=== PATIENT | female | born 1955 | race Caucasian/White ===

== ENCOUNTER 2018-10-16 12:50 | Observation (INO) | payer MEDICARE, OTHER ==
--- NOTE | 2018-10-16 13:44 | ER Document Report ---
ED Medical Screen (RME) - General Chief Complaint: Chest Pain Stated Complaint: CHEST PAIN, SHORT OF BREATH Time Seen by Provider: 10/16/18 13:36 Notes: Patient is a 63-year-old female that presents to the emergency department for chief complaint of chest pain. Patient states it started last night, seems to be worse with exertion, has associated shortness of breath. ROS: Other than noted above, the 12 point review of systems was reviewed with the patient and were negative, all pertinent findings are included in the HPI. PHYSICAL EXAMINATION: Vital signs reviewed. GENERAL: Elderly female, no acute distress HEAD: Atraumatic, normocephalic. EYES: Pupils equal round extraocular movements intact, conjunctiva are normal. ENT: Nares patent NECK: Normal range of motion CV: Heart regular rate and rhythm LUNGS: No respiratory distress Musculoskeletal: Normal range of motion NEUROLOGICAL: Normal speech PSYCH: Normal mood, normal affect. MDM: Patient seen and examined for rapid initial assessment. Vital signs reviewed. A comprehensive ED assessment and evaluation of the patient, analysis of test results and completion of the medical decision making process will be conducted by additional ED providers. *Note is created using voice recognition software and may contain spelling, syntax or grammatical errors. TRAVEL OUTSIDE OF THE [place] IN LAST 30 DAYS: No - Related Data Allergies/Adverse Reactions: No Known Allergies Allergy (Verified 10/16/18 13:43) Past Medical History - Social History Chew tobacco use (# tins/day): No Frequency of alcohol use: None Drug Abuse: None - Past Medical History Cardiac Medical History: Reports: Hx Hypercholesterolemia, Hx Hypertension Renal/ Medical History: Denies: Hx Peritoneal Dialysis GI Medical History: Reports: Hx Gastroesophageal Reflux Disease Past Surgical History: Reports: Hx Appendectomy, Hx Cholecystectomy, Hx Hysterectomy, Hx Orthopedic Surgery - right knee replaced, back surgery Physical Exam - Vital signs Vitals: Temp Pulse Resp BP Pulse Ox 98.1 F 71 18 147/76 H 99 10/16/18 13:01 10/16/18 13:01 10/16/18 13:01 10/16/18 13:01 10/16/18 13:01 Course - Vital Signs Vital signs: Temp Pulse Resp BP Pulse Ox 98.1 F 71 18 147/76 H 99 10/16/18 13:01 10/16/18 13:01 10/16/18 13:01 10/16/18 13:01 10/16/18 13:01
--- NOTE | 2018-10-16 14:15 | RADIOLOGY REPORT (SQ) ---
EXAM DESCRIPTION: CHEST SINGLE VIEW COMPLETED DATE/TIME: 10/16/2018 2:07 pm REASON FOR STUDY: chest pain COMPARISON: None. EXAM PARAMETERS: NUMBER OF VIEWS: One view. TECHNIQUE: Single frontal radiographic view of the chest acquired. RADIATION DOSE: NA LIMITATIONS: None. FINDINGS: LUNGS AND PLEURA: No opacities, masses or pneumothorax. No pleural effusion. MEDIASTINUM AND HILAR STRUCTURES: No masses. Contour normal. HEART AND VASCULAR STRUCTURES: Heart normal in size. Normal vasculature. BONES: No acute findings. HARDWARE: None in the chest. OTHER: No other significant finding. IMPRESSION: NO ACUTE RADIOGRAPHIC FINDING IN THE CHEST. TECHNICAL DOCUMENTATION: JOB ID: [id number] [employer]- All Rights Reserved Reading location - IP/workstation name: [email or web address]
[2018-10-16 14:31] LABS: ABSOLUTE BASOPHILS # (AUTO) 0.1 10^3/uL (0.0-0.2); ABSOLUTE EOSINOPHILS # (AUTO) 0.1 10^3/uL (0.0-0.6); ABSOLUTE LYMPHOCYTES (AUTO) 3.9 10^3/uL (0.5-4.7); ABSOLUTE MONOCYTES (AUTO) 0.5 10^3/uL (0.1-1.4); ABSOLUTE NEUT (AUTO) 3.6 10^3/uL (1.7-8.2); EOSINOPHILS % (AUTO) 1.2 % (0-6); HEMATOCRIT 42.8 % (36.0-47.0); HEMOGLOBIN 14.6 g/dL (12.0-15.5); LYMPHOCYTES % (AUTO) 47.7 % (13-45); MEAN CORPUSCULAR HEMOGLOBIN 31.4 pg (27.0-33.4); MEAN CORPUSCULAR HGB CONC 34.1 g/dL (32.0-36.0); MEAN CORPUSCULAR VOLUME 92 fl (80-97); MONOCYTES % (AUTO) 5.9 % (3-13); PLATELET COUNT 298 10^3/uL (150-450); RED BLOOD COUNT 4.64 10^6/uL (3.72-5.28); RED CELL DISTRIBUTION WIDTH 13.3 % (11.5-14.0); SEGMENTED NEUTROPHILS % (AUTO) 44.2 % (42-78); TOTAL CELLS COUNTED % (AUTO) 100 %; WHITE BLOOD COUNT 8.2 10^3/uL (4.0-10.5)
[2018-10-16] MEDS ORDERED: ASPIRIN 81 MG TABLET, CHEWABLE PO ONE (14:47)
[2018-10-16 14:55] LABS: ALANINE AMINOTRANSFERASE 30 U/L (9-52); ALBUMIN 4.1 g/dL (3.5-5.0); ALKALINE PHOSPHATASE 90 U/L (38-126); ANION GAP 11 (5-19); ASPARTATE AMINO TRANSFERASE 34 U/L (14-36); BILIRUBIN,DIRECT 0.4 mg/dL (0.0-0.4); BILIRUBIN,TOTAL 0.6 mg/dL (0.2-1.3); BLOOD UREA NITROGEN 8 mg/dL (7-20); CARBON DIOXIDE 30 mmol/L (22-30); CHLORIDE 98 mmol/L (98-107); GLUCOSE 96 mg/dL (75-110); POTASSIUM 3.9 mmol/L (3.6-5.0); SODIUM 138.7 mmol/L (137-145); TOTAL PROTEIN 6.6 g/dL (6.3-8.2)
[2018-10-16] MEDS: NITROGLYCERIN 0.4 MG/TAB 25 TAB/BOTTLE SL PRN ×2 (14:58→15:15)
--- NOTE | 2018-10-16 15:04 | ER Document Report ---
ED General - General Chief Complaint: Chest Pain Stated Complaint: CHEST PAIN, SHORT OF BREATH Time Seen by Provider: 10/16/18 13:36 Primary Care Provider: EDUARD BARKSDALE MD [Primary Care Provider] - Follow up as needed TRAVEL OUTSIDE OF THE [place] IN LAST 30 DAYS: No - HPI Notes: Patient is a 63-year-old white female who presents to the emergency department for evaluation of chest pain. Onset was last night while lying in bed. She described it as a heavy pressure on her substernal area. She states it seems to have moved into her left lower chest and occasionally into her left arm. She also states she has had some shooting pains in her right posterior neck. She describes associated shortness of breath and nausea with this pain. She states she was able to get sleep eventually, awoke and the pain was improved but still present. Throughout the day, with any sort of exertion, the pain did worsen. She denies ever having any pain similar to this in the past. - Related Data Allergies/Adverse Reactions: No Known Allergies Allergy (Verified 10/16/18 13:43) Past Medical History - General Information source: Patient - Social History Smoking Status: Former Smoker Chew tobacco use (# tins/day): No Frequency of alcohol use: None Drug Abuse: None Family History: CAD - Nearly all siblings had coronary artery disease in their 40s and 50s Patient has suicidal ideation: No Patient has homicidal ideation: No - Past Medical History Cardiac Medical History: Reports: Hx Hypercholesterolemia, Hx Hypertension Renal/ Medical History: Denies: Hx Peritoneal Dialysis GI Medical History: Reports: Hx Gastroesophageal Reflux Disease Past Surgical History: Reports: Hx Appendectomy, Hx Cholecystectomy, Hx Hysterectomy, Hx Orthopedic Surgery - right knee replaced, back surgery Review of Systems - Review of Systems Constitutional: No symptoms reported EENT: No symptoms reported Cardiovascular: See HPI Respiratory: See HPI Gastrointestinal: No symptoms reported Genitourinary: No symptoms reported Musculoskeletal: No symptoms reported Skin: No symptoms reported Neurological/Psychological: No symptoms reported Physical Exam - Vital signs Vitals: Temp Pulse Resp BP Pulse Ox 98.1 F 71 18 147/76 H 99 10/16/18 13:01 10/16/18 13:01 10/16/18 13:01 10/16/18 13:01 10/16/18 13:01 - Notes Notes: Vital signs reviewed, please refer to chart. Patient is normocephalic, atraumatic. Pupils equal round, reactive to light. Neck is supple without meningismus. Heart is regular rate and rhythm. Lungs are clear to auscultation bilaterally. Abdomen is soft, nontender, normoactive bowel sounds throughout. Extremities without cyanosis, clubbing, edema. No posterior calf tenderness. Peripheral pulses are equal. Skin is warm and dry. Patient is awake, alert, ne urological exam is nonfocal. Course - Re-evaluation Re-evalutation: 10/16/18 15:02 Patient presents to the emergency department for evaluation. The onset of this pressure type pain at rest is not specifically suspicious, but I am concerned about the fact that it worsens with exertion. This patient is obese, has a history of hypertension, and a very strong family history. That combined with her age advances her HEART score significantly. Patient was placed on a environmental monitoring specialist, EKG and lab work were obtained. Orders initially carried out as by the physician in triage. Given this patient's multiple risk factors, I am inclined to treat her as an observation. Currently awaiting treatment with nitroglycerin to assess for response. We will continue to monitor. 10/16/18 16:38 I had been notified by nursing that the patient's pain did not significantly improve with nitroglycerin. She was medicated with morphine. Patient reexamined and found to be chest pain-free. Will apply Nitropaste. Will contact medicine for admission. 10/16/18 16:46 I spoke with RAFAL Moss and Dr. Roberts, patient will be admitted for further care. She remains stable here in the ED. - Vital Signs Vital signs: Temp Pulse Resp BP Pulse Ox 98.8 F 78 6 L 121/73 93 10/16/18 14:53 10/16/18 14:53 10/16/18 15:27 10/16/18 15:27 10/16/18 15:27 - Laboratory Result Diagrams: 10/16/18 14:19 10/16/18 14:19 Laboratory results interpreted by me: 10/16/18 14:19 Lymphocytes % 47.7 H - Diagnostic Test Radiology reviewed: Reports reviewed - No acute cardiopulmonary disease - EKG Interpretation by Me Additional EKG results interpreted by me: 10/16/18 15:04 Sinus mechanism with a rate of 70 bpm. Normal axis and intervals. Nonspecific ST and T wave changes, no changes concerning for acute infarction. No old studies available for comparison. Discharge - Discharge Clinical Impression: Chest pain Condition: Stable Disposition: ADMITTED OBSERVATION [facility] Admitted: Telemetry Referrals: EDUARD BARKSDALE MD [Primary Care Provider] - Follow up as needed
[2018-10-16] MEDS ORDERED: MORPHINE SULFATE 10 MG/ML INJ IV ONE (15:34)
[2018-10-16] MEDS ORDERED: ONDANSETRON HCL INJ/PF 4 MG/2 ML SDV IV ONE (15:34)
[2018-10-16] MEDS ORDERED: NITROGLYCERIN 2% OINTMENT 1 GM PACKET TP ONE (16:38)
[2018-10-16] MEDS ORDERED: NITROGLYCERIN 0.4 MG/TAB 25 TAB/BOTTLE SL PRN (17:25)
--- NOTE | 2018-10-16 17:41 | PDOC H&P ---
History of Present Illness Admission Date/PCP: 10/16/18 17:15 EDUARD BARKSDALE MD History of Present Illness: JOHN JUNIOR is a 63 year old female with a history of fibromyalgia, depression, anxiety, arthritis, and hypertension who presents with a 24-hour history of chest pain. She describes it as a pressure in the left side of her chest and does not radiate. She said she did feel something go up the back of her neck and the top of her head at one point but that is no longer there. She did some light housework yesterday but nothing strenuous. She is a non-smoker. The pain has been constant. It gets worse when she raises her left arm over her head. She is never had anything like this before. She said she had a negative stress test about 5 years ago. She has a strong family history, with 2 brothers dying of cardiac disease, and her sister had her first bypass surgery at age 45, a second at age 65. Past Medical History Cardiac Medical History: Reports: Hyperlipidema, Hypertension GI Medical History: Reports: Gastroesophageal Reflux Disease Past Surgical History Past Surgical History: Reports: Appendectomy, Cholecystectomy, Hysterectomy, Orthopedic Surgery - right knee replaced, back surgery Social History Smoking Status: Former Smoker Family History Family History: Arthritis, CAD - Nearly all siblings had coronary artery disease in their 40s and 50s, Hyperlipidemia, Hypertension Parental Family History Reviewed: Yes Children Family History Reviewed: Yes Sibling(s) Family History Reviewed.: Yes Medication/Allergy Allergies/Adverse Reactions: No Known Allergies Allergy (Verified 10/16/18 13:43) Review of Systems All systems: reviewed and no additional remarkable complaints except as stated - All systems reviewed and were negative except as noted in the HPI Physical Exam Vital Signs: Temp Pulse Resp BP Pulse Ox 98.8 F 78 6 L 121/73 93 10/16/18 14:53 10/16/18 14:53 10/16/18 15:27 10/16/18 15:27 10/16/18 15:27 Intake & Output 10/15/18 10/16/18 10/17/18 06:59 06:59 06:59 Weight 85.1 kg General appearance: PRESENT: no acute distress, cooperative, disheveled, morbidly obese Head exam: PRESENT: atraumatic, normocephalic Eye exam: PRESENT: EOMI, PERRLA. ABSENT: conjunctival injection, nystagmus, scleral icterus Ear exam: PRESENT: normal external ear exam Mouth exam: PRESENT: moist, neck supple Teeth exam: PRESENT: poor dentation Throat exam: ABSENT: post pharyngeal erythema Neck exam: PRESENT: full ROM. ABSENT: carotid bruit, JVD, lymphadenopathy, meningismus, tenderness, thyromegaly Respiratory exam: PRESENT: chest wall tenderness - Left lateral chest tenderness to palpation at the level of the mid sternum, over the area where she said her pain was the worst, clear to auscultation lisa, symmetrical, unlabored. ABSENT: accessory muscle use, crackles, prolonged expiratory phas, rhonchi, tachypnea, wheezes Cardiovascular exam: PRESENT: RRR, +S1, +S2. ABSENT: diastolic murmur, systolic murmur Pulses: PRESENT: normal carotid pulses Vascular exam: PRESENT: normal capillary refill GI/Abdominal exam: PRESENT: normal bowel sounds, soft. ABSENT: distended, guarding, rebound, tenderness Extremities exam: ABSENT: clubbing, pedal edema Musculoskeletal exam: PRESENT: normal inspection. ABSENT: deformity Neurological exam: PRESENT: alert, awake, oriented to person, oriented to place, oriented to time, oriented to situation, CN II-XII grossly intact. ABSENT: motor sensory deficit Psychiatric exam: PRESENT: anxious Skin exam: PRESENT: dry, warm Results Laboratory Results: 10/16/18 14:19 10/16/18 14:19 10/16/18 10/16/18 14:19 14:19 WBC 8.2 RBC 4.64 Hgb 14.6 Hct 42.8 MCV 92 MCH 31.4 MCHC 34.1 RDW 13.3 Plt Count 298 Seg Neutrophils % 44.2 Lymphocytes % 47.7 H Monocytes % 5.9 Eosinophils % 1.2 Basophils % 1.0 Absolute Neutrophils 3.6 Absolute Lymphocytes 3.9 Absolute Monocytes 0.5 Absolute Eosinophils 0.1 Absolute Basophils 0.1 Sodium 138.7 Potassium 3.9 Chloride 98 Carbon Dioxide 30 Anion Gap 11 BUN 8 Creatinine 0.62 Est GFR ( Amer) > 60 Est GFR (Non-Af Amer) > 60 Glucose 96 Calcium 10.0 Total Bilirubin 0.6 AST 34 ALT 30 Alkaline Phosphatase 90 Total Protein 6.6 Albumin 4.1 10/16/18 14:19 Troponin I < 0.012 Impressions: Chest X-Ray 10/16/18 13:44 IMPRESSION: NO ACUTE RADIOGRAPHIC FINDING IN THE CHEST. Assessment and Plan - Diagnosis (1) Chest pain Qualifiers: Chest pain type: other chest pain Qualified Code(s): R07.89 - Other chest pain; R07.8 - Other chest pain Is this a current diagnosis for this admission?: Yes Plan: The pain is atypical. It is not worse with exertion. It was reproducible to palpation. The ER doctor was going to put some nitroglycerin paste on her chest but her systolic was only around 100 and so I made the decision to hold off on doing that for now. The primary compelling reason to keep her here is because of her family history. This is an obese patient with a history of hypertension hyperlipidemia with a strong family history. We will trend her enzymes overnight and keep her on aspirin and statin. We will plan on getting a stress test tomorrow morning. - Time Time Spent with patient: 35 or more minutes
--- NOTE | 2018-10-16 21:25 | EKG REPORT ---
SEVERITY:- NORMAL ECG - SINUS RHYTHM : Confirmed by: Deann Manjarrez MD 16-Oct-2018 21:24:09
[2018-10-16] MEDS ORDERED: ATORVASTATIN CALCIUM 40 MG TABLET PO SCH (22:00)
[2018-10-17] MEDS ORDERED: ASPIRIN 81 MG TABLET, ENT COATED PO SCH (10:00)
[2018-10-17] MEDS ORDERED: REGADENOSON INJ 0.4 MG/5 ML DISP.SYRIN IV ONE (11:26)
--- NOTE | 2018-10-17 14:48 | EKG REPORT ---
SEVERITY:- ABNORMAL ECG - SINUS RHYTHM PROBABLE POSTERIOR INFARCT BORDERLINE T ABNORMALITIES, INFERIOR LEADS : Confirmed by: Deann Manjarrez MD 17-Oct-2018 14:47:45
--- NOTE | 2018-10-17 16:29 | PDOC DISCHARGE SUMMARY ---
General - Admit/Disc Date/PCP Admission Date/Primary Care Provider: 10/16/18 17:15 EDUARD BARKSDALE MD Discharge Date: 10/17/18 - Discharge Diagnosis (1) Chest pain Is this a current diagnosis for this admission?: Yes - Additional Information Resuscitation Status: Full Code Discharge Diet: Regular Discharge Activity: Activity As Tolerated Home Medications: Amitriptyline HCl [Elavil 100 mg Tablet] 100 mg PO QHS 10/16/18 Cholecalciferol (Vitamin D3) [Vitamin D3 2000 unit Tablet] 2,000 unit PO DAILY 10/16/18 Cyclobenzaprine HCl [Flexeril 10 mg Tablet] 10 mg PO TIDP PRN 10/16/18 Diazepam [Valium 2 mg Tablet] 2 mg PO Q12HP PRN 10/16/18 Duloxetine HCl [Cymbalta] 60 mg PO DAILY 10/16/18 Gabapentin [Neurontin 300 mg Capsule] 300 mg PO Q8 10/16/18 Metoclopramide HCl [Reglan 10 mg Tablet] 10 mg PO MEALS 10/16/18 Midodrine HCl 2.5 mg PO ASDIR PRN 10/16/18 Omeprazole 40 mg PO BID 10/16/18 Propranolol HCl [Inderal 40 mg Tablet] 40 mg PO BID 10/16/18 Rosuvastatin Calcium [Crestor 10 mg Tablet] 10 mg PO ASDIR PRN 10/16/18 Tramadol HCl [Ultram 50 mg Tablet] 50 mg PO ASDIR PRN 10/16/18 History of Present Illness Patient complains of: Chest pain and epigastric pain History of Present Illness: JOHN JUNIOR is a 63 year old female with a history of fibromyalgia, depression, anxiety, arthritis, and hypertension who presents with a 24-hour history of chest pain. She describes it as a pressure in the left side of her chest and does not radiate. She said she did feel something go up the back of her neck and the top of her head at one point but that is no longer there. She did some light housework yesterday but nothing strenuous. She is a non-smoker. The pain has been constant. It gets worse when she raises her left arm over her head. She is never had anything like this before. She said she had a negative stress test about 5 years ago. She has a strong family history, with 2 brothers dying of cardiac disease, and her sister had her first bypass surgery at age 45, a second at age 65. Patient was admitted to the hospitalist service on telemetry. She had serial troponins done x3 which were all unremarkable. She underwent Lexiscan stress testing which was interpreted by radiology cardiology. Dr. Manjarrez, to review this test is negative for ischemia. With normal LV function. We feel most likely the pain is gastrointestinal in nature. She was encouraged to follow-up with her primary care provider we discussed possible Carafate prior to meals and bedtime. States she does have a prescription for this at home but has not taken. She will try this and follow-up with her primary care provider in the next 1-2 weeks. She was discharged home in good condition with her granddaughter. Physical Exam Vital Signs: Temp Pulse Resp BP Pulse Ox 97.9 F 96 16 112/75 98 10/17/18 15:09 10/17/18 15:09 10/17/18 15:09 10/17/18 15:09 10/17/18 15:09 Intake & Output 10/16/18 10/17/18 10/18/18 06:59 06:59 06:59 Intake Total 900 522 Balance 900 522 Weight 79.9 kg General appearance: PRESENT: no acute distress, well-developed, well-nourished Head exam: PRESENT: atraumatic, normocephalic Eye exam: PRESENT: conjunctiva pink, EOMI, PERRLA. ABSENT: scleral icterus Ear exam: PRESENT: normal external ear exam Mouth exam: PRESENT: moist, tongue midline Neck exam: ABSENT: carotid bruit, JVD, lymphadenopathy, thyromegaly Respiratory exam: PRESENT: clear to auscultation lisa. ABSENT: rales, rhonchi, wheezes Cardiovascular exam: PRESENT: RRR. ABSENT: diastolic murmur, rubs, systolic murmur Pulses: PRESENT: normal dorsalis pedis pul Vascular exam: PRESENT: normal capillary refill GI/Abdominal exam: PRESENT: normal bowel sounds, soft. ABSENT: distended, guarding, mass, organolmegaly, rebound, tenderness Rectal exam: PRESENT: deferred Extremities exam: PRESENT: full ROM. ABSENT: calf tenderness, clubbing, pedal edema Neurological exam: PRESENT: alert, awake, oriented to person, oriented to place, oriented to time, oriented to situation, CN II-XII grossly intact. ABSENT: motor sensory deficit Psychiatric exam: PRESENT: appropriate affect, normal mood. ABSENT: homicidal ideation, suicidal ideation Skin exam: PRESENT: dry, intact, warm. ABSENT: cyanosis, rash Results Laboratory Results: 10/16/18 14:19 10/16/18 14:19 10/16/18 10/16/18 10/16/18 14:19 18:00 23:47 Troponin I < 0.012 < 0.012 < 0.012 10/17/18 05:32 Troponin I 0.013 Impressions: Chest X-Ray 10/16/18 13:44 IMPRESSION: NO ACUTE RADIOGRAPHIC FINDING IN THE CHEST. Qualifiers - * PATIENT BEING DISCHARGED WITH ANY OF THE FOLLOWING DIAGNOSIS: No Plan Discharge Plan: Discharge home with family. She will follow-up with her primary care provider in the next 1-2 weeks Time Spent: Less than 30 Minutes
[2018-10-17 16:49] VITALS: BP 123/84
--- NOTE | 2018-10-19 17:45 | DRAGON STRESS TEST REPORT ---
Intravenous Lexiscan Cardiolite stress test using single photon emmision computerized tomography. Date of procedure: 10/17/2018. Ordering Provider: Dr. Eduin Roberts. Patient's status: In the Patient. Indication: Chest pain. Coronary risk factors: Age, hypertension, and dyslipidemia. The patient had reproducible chest wall pain just prior to the stress testing in the stress room. A 12-lead EKG was obtained and did not show any changes. And hence this stress test was performed. Resting EKG: Sinus Rhythm. No acute changes. Stress EKG: No changes of ischemia. The patient had no angina or anginal equivalent symptoms, and there were no arrhythmias seen. Reason for termination: Protocol. Conclusions: Normal EKG and hemodynamic response to IV Lexiscan. Nuclear data: At rest the patient was given 12.68 millicuries of technetium 99m sestamibi injected intravenously. As per protocol rest non gated SPECT images were obtained. Subsequently the patient was given intravenous Lexiscan at a dose of 0.4 mg in 5 mL intravenously, followed by flush with normal saline. Subsequently the stress dose of 36.0 millicuries of technetium 99m sestamibi was injected intravenously. As per protocol stress gated images were obtained. Nuclear interpretation: Review of images showed that all segments of the myocardium had normal perfusion at rest, and normal perfusion post stress with IV Lexiscan. All segments of the myocardium had normal motion, contraction, and thickening by gated study. T. I D. ratio was normal at 1.01. There is no transient ischemic dilatation of the left ventricle. Computer read rest, and stress left ventricular ejection fraction were 65 %, and 61 %, respectively. Conclusion: 1. There is no scintigraphic evidence of Lexiscan induced myocardial ischemia. 2. There is no scintigraphic evidence of myocardial infarction/scar. Recommendations: Aggressive risk factor modification, and treating the underlying co- morbidities. MTDD
== END 2018-10-17 17:47 | disposition home or self-care (01) ==
LOC: ER 12:50 → EH 17:15 → 4N 18:47
PROVIDERS: ADMIT Family Medicine; ATTEND Family Medicine
DX: R07.89 Other chest pain (principal); E66.9 Obesity, unspecified; M54.2 Cervicalgia; R06.02 Shortness of breath; R11.0 Nausea; M79.7 Fibromyalgia; K21.9 Gastro-esophageal reflux disease without esophagitis; F32.9 Major depressive disorder, single episode, unspecified; I10 Essential (primary) hypertension; E78.5 Hyperlipidemia, unspecified; M19.90 Unspecified osteoarthritis, unspecified site; Z87.891 Personal history of nicotine dependence; Z79.899 Other long term (current) drug therapy; Z82.49 Family history of ischemic heart disease and other diseases of the circulatory system; Z90.49 Acquired absence of other specified parts of digestive tract
CPT/HCPCS: 93005 ×2; 99285; 96374; 36415 ×2; 85025; 80053; 84484 ×2; 83036; 93017; 71045; 78452; 93010 ×2; G0378 ×3; A9500; J2785; A9270 ×2; J2270; J3490 ×2; J2405